=== PATIENT | male | born 1985 | race African-American/Black ===

== ENCOUNTER 2022-01-11 10:53 | Emergency (ER) | payer OTHER ==
[~2022-01-11] VITALS: Ht 172.7 cm; Wt 73.0 kg
[2022-01-11] MEDS ORDERED: IBUPROFEN 600MG TABLET PO ONE (11:15)
[2022-01-11] MEDS ORDERED: MORPHINE SULFATE 10 MG/ML CPJ IM ONE (11:45)
[2022-01-11] MEDS ORDERED: ONDANSETRON 4MG ODT PO ONE (11:45)
[2022-01-11 11:56] VITALS: BP 141/54
[2022-01-11] MEDS ORDERED: HYDR-4001 MT ×2 (12:38→12:39)
[2022-01-11] MEDS ORDERED: IBUP-2029 MT (12:38)
== END 2022-01-11 13:02 | disposition home or self-care (01) ==
LOC: ER 10:53
DX: S82.51XA Displaced fracture of medial malleolus of right tibia, initial encounter for closed fracture (principal); S82.491A Other fracture of shaft of right fibula, initial encounter for closed fracture; X50.1XXA Overexertion from prolonged static or awkward postures, initial encounter; Y93.01 Activity, walking, marching and hiking; Y92.9 Unspecified place or not applicable
CPT/HCPCS: 29515; 73610; 96372; 99283; J2270; Q0162